=== PATIENT | female | born 2000 | race African-American/Black ===

== ENCOUNTER 2019-04-16 19:18 | Emergency (ER) | payer OTHER, SELFPAY ==
[2019-04-16 19:24] VITALS: BP 116/78; PULSE 76; RESP 18; TEMP 36.8; O2SAT 100; BMI 22.6
--- NOTE | 2019-04-16 19:43 | ED.ABDPAIN ---
HPI - Abdominal Pain General Chief Complaint: Abdominal Pain Stated Complaint: 12 WKS , ABD PAIN, PAIN W/URINATION Time Seen by Provider: 04/16/19 19:29 Source: patient Mode of arrival: ambulatory Limitations: no limitations History of Present Illness HPI narrative: Patient is a 18-year-old female who is currently 11 weeks . This is her 1st . She has been having lower abdominal pain and cramping today. No vaginal bleeding. She does have some yellowish discharge. On she denies any back pain. She feels like she might have a UTI. She has been nauseated but no vomiting that is only really been today. No fevers. She apparently was diagnosed with Chlamydia by pelvic exam about 4 weeks ago she was treated with azithromycin. was never treated. She is having some yellow discharge. MD complaint: abdominal pain Quality: cramping Migration to: no migration Relieving factors: nothing Exacerbating factors: nothing Related Data Previous Rx's Medication Instructions Recorded nitrofurantoin monohyd/m-cryst 100 mg PO BID #14 cap 04/16/19 [Macrobid] Allergies Allergy/AdvReac Type Severity Reaction Status Date / Time No Known Drug Allergies Allergy Verified 04/16/19 20:21 Review of Systems Review of Systems ROS Unobtainable: All systems reviewed & are unremarkable except as noted in HPI and below Constitutional Denies chills, Denies fever(s), Denies lethargy and Denies weakness Eyes Denies change in vision, Denies eye discharge, Denies irritation and Denies loss of vision Cardiovascular Denies dyspnea and Denies dyspnea on exertion Respiratory Denies cough, Denies dyspnea, Denies dyspnea on exertion and Denies wheezing Gastrointestinal Gastrointestinal: Reports as per HPI and Reports nausea Genitourinary Reports as per HPI Musculoskeletal Denies back pain, Denies muscle weakness, Denies numbness and Denies tingling Integumentary/Breasts Denies pruritus, Denies erythema, Denies rash and Denies wounds Neurologic Denies loss of vision, Denies numbness, Denies tingling and Denies weakness Allergic/Immunologic Denies wheezing [facility] Medical History History of chlamydia (Acute) Social History Smoking Status: Never smoker Social History Smoking Status: Never smoker Exam Initial Vital Signs Initial Vital Signs: Vital Signs Temperature 98.2 F 04/16/19 19:24 Pulse Rate 76 04/16/19 19:24 Respiratory Rate 18 04/16/19 19:24 Blood Pressure 116/78 04/16/19 19:24 Pulse Oximetry 100 04/16/19 19:24 GENERAL: Well-appearing, well-nourished and in no acute distress. HEENT: Head atraumatic,EOMI, pupils reactive, face symmetric, moist mucous membranes CARDIOVASCULAR: Regular rate and rhythm without murmurs, rubs or gallops. RESPIRATORY: Breath sounds equal bilaterally, no wheezes rales or rhonchi. ABDOMEN: Soft, lower abdominal tenderness no guarding or rebound : No CVA tenderness EXTREMITIES: Normal range of motion, no clubbing or edema. Neurovascularly intact NEUROLOGICAL: Alert and oriented x4.Normal gait and speech. SKIN: Warm, dry, no laceration, no petechiae, no rashes or lesions. Course Orders Ordered: ED Orders 04/16/19 19:49 US OB <= 14 weeks fetus Stat 04/16/19 19:52 Test Urine Stat Urinalysis and Microscopic Stat Urine Chlamydia Gonorrhea PCR Stat Urine Culture Stat 04/16/19 20:06 Complete Blood Count AUTO DIFF Stat Comprehensive Metabolic Panel Stat Discontinued Medications Azithromycin (Zithromax) 1,000 mg PO NOW ONE Stop: 04/16/19 22:31 Last Admin: 04/16/19 22:47 Dose: 1,000 mg Sodium Chloride (Normal Saline 0.9%) 1,000 mls @ 1,000 mls/hr IV BOLUS ONE Stop: 04/16/19 20:48 Last Infusion: 04/16/19 21:18 Dose: 0 mls/hr Admin: 04/16/19 20:21 Dose: 1,000 mls/hr Nitrofurantoin Macrocrystals (Macrobid 100mg Prepack) 1 bottle MISC SEEINSTR ONE Stop: 04/16/19 22:38 Last Admin: 04/16/19 22:45 Dose: 1 bottle Ondansetron HCl (Zofran) 4 mg IV NOW ONE Stop: 04/16/19 19:50 Last Admin: 04/16/19 20:21 Dose: 4 mg Vital Signs - 8 hr 04/16/19 19:24 04/16/19 22:08 Temperature 98.2 F Pulse Rate 76 64 Respiratory Rate 18 17 Blood Pressure 116/78 Blood Pressure [Right Arm] 107/60 Pulse Oximetry 100 100 MDM - Abdominal Pain Lab Data Attestation: I reviewed the patient's lab results. Result diagrams: 04/16/19 20:06 04/16/19 20:06 Lab Results 04/16/19 04/16/19 04/16/19 Range/Units 19:52 19:52 19:52 WBC (4.5-11.0) X10^3/uL RBC (4.0-5.2) X10^6/uL Hgb (12.0-16.0) g/dL Hct (36-46) % MCV (80-100) fL MCH (26-34) PG MCHC (30-36) % RDW (11.6-14.8) % Plt Count (150-400) X10^3/uL Neut % (Auto) (50-75) % Lymph % (Auto) (25-40) % [place] % (Auto) (3-14) % Eos % (Auto) (2-4) % Baso % (Auto) (0-2) % Neut # (Auto) (2761-0398) /uL Lymph # (Auto) (5271-0613) /uL [place] # (Auto) (0-900) /uL Eos # (Auto) (0-450) /uL Baso # (Auto) (0-100) /uL Sodium (137-145) mmol/L Potassium (3.4-5.1) mmol/L Chloride (98-107) mmol/L Carbon Dioxide (22-32) mmol/L BUN (7-17) mg/dL Creatinine (0.52-1.04) mg/dL Estimated GFR (>60) mL/min BUN/Creatinine Ratio (6-22) Glucose (70-100) mg/dL Calcium (8.4-10.2) mg/dL Total Bilirubin (0.2-1.3) mg/dL AST (14-36) IU/L ALT (9-52) IU/L Alkaline Phosphatase (38-126) U/L Total Protein (6.3-8.2) g/dL Albumin (3.5-5.0) g/dL Globulin (1.7-4.1) g/dL Albumin/Globulin Ratio (1.0-2.8) Urine Color Yellow Urine Appearance Clear Urine pH 5.0 (4.5-8.0) Ur Specific [place] >=1.030 H (1.000-1.035) Urine Protein Negative (Negative) Urine Glucose (UA) Negative (Negative) g/dL Urine Ketones Negative (NEGATIVE) Urine Occult Blood Negative (Negative) Urine Nitrate Negative (Negative) Urine Bilirubin Negative (NEGATIVE) Urine Urobilinogen 0.2 (0.2) E.U./dL Ur Leukocyte Esterase Trace H (NEGATIVE) Urine RBC 1-5/hpf (0-5/HPF) Urine WBC 1-5/hpf (0-5/HPF) Ur Squamous Epith Cells 1-5 /hpf (0-5/HPF) Urine Bacteria Few (2-10) H (None) Ur Culture Indicated? Specimen cultured Urine Test Positive H (Negative) Ur Chlamydia DNA (PCR) Not detected N gonorrhoeae DNA (PCR) Not detected 04/16/19 04/16/19 Range/Units 20:06 20:06 WBC 5.8 (4.5-11.0) X10^3/uL RBC 4.40 (4.0-5.2) X10^6/uL Hgb 12.8 (12.0-16.0) g/dL Hct 36.9 (36-46) % MCV 83.9 (80-100) fL MCH 29.1 (26-34) PG MCHC 34.7 (30-36) % RDW 13.7 (11.6-14.8) % Plt Count 278 (150-400) X10^3/uL Neut % (Auto) 50.8 (50-75) % Lymph % (Auto) 36.3 (25-40) % [place] % (Auto) 11.0 (3-14) % Eos % (Auto) 1.1 L (2-4) % Baso % (Auto) 0.8 (0-2) % Neut # (Auto) 2900 (7268-3659) /uL Lymph # (Auto) 2100 (8898-6676) /uL [place] # (Auto) 600 (0-900) /uL Eos # (Auto) 100 (0-450) /uL Baso # (Auto) 0 (0-100) /uL Sodium 136 L (137-145) mmol/L Potassium 3.7 (3.4-5.1) mmol/L Chloride 100 (98-107) mmol/L Carbon Dioxide 26 (22-32) mmol/L BUN 7 (7-17) mg/dL Creatinine 0.50 L (0.52-1.04) mg/dL Estimated GFR > 60.0 (>60) mL/min BUN/Creatinine Ratio 14.0 (6-22) Glucose 106 H (70-100) mg/dL Calcium 10.1 (8.4-10.2) mg/dL Total Bilirubin 0.3 (0.2-1.3) mg/dL AST 25 (14-36) IU/L ALT 7 L (9-52) IU/L Alkaline Phosphatase 56 (38-126) U/L Total Protein 8.0 (6.3-8.2) g/dL Albumin 4.4 (3.5-5.0) g/dL Globulin 3.6 (1.7-4.1) g/dL Albumin/Globulin Ratio 1.2 (1.0-2.8) Urine Color Urine Appearance Urine pH (4.5-8.0) Ur Specific [place] (1.000-1.035) Urine Protein (Negative) Urine Glucose (UA) (Negative) g/dL Urine Ketones (NEGATIVE) Urine Occult Blood (Negative) Urine Nitrate (Negative) Urine Bilirubin (NEGATIVE) Urine Urobilinogen (0.2) E.U./dL Ur Leukocyte Esterase (NEGATIVE) Urine RBC (0-5/HPF) Urine WBC (0-5/HPF) Ur Squamous Epith Cells (0-5/HPF) Urine Bacteria (None) Ur Culture Indicated? Urine Test (Negative) Ur Chlamydia DNA (PCR) N gonorrhoeae DNA (PCR) Imaging Data OB US: Radiologist's impression: PROCEDURE: US OB <= 14 WEEKS FETUS INDICATIONS: PAIN OUTSIDE/PRIOR DATING DATA: Last menstrual period (LMP): 02/01/19. LMP-based estimated date of delivery (TIMOTEO): 11/08/19. First dating scan (date and location): 04/16/19. Estimated date of delivery (TIMOTEO) from first dating scan: 11/02/19. TECHNIQUE: Real-time scanning was performed of the fetus and maternal pelvic organs, with image documentation. Endovaginal scanning was also performed to better visualize the fetus and maternal ovaries. COMPARISON: None. FINDINGS: Embryo: Single living intrauterine gestation with crown-rump length measuring 4.6 cm which correlates with approximately 11 weeks and 3 days gestational age. heart rate measured 182 beats per minute. No perigestational hemorrhage. Measurement variability in dating: +/- 4 weeks by LMP, +/- 7 days by mean sac diameter (use before 6 weeks gestation if crown-rump length not able to be measured), +/- 5 days by crown-rump length (up to 8 weeks 6 days gestation), +/- 7 days by crown-rump length (up to 13 weeks 6 days gestation). Maternal organs: Right maternal ovary is unremarkable. The left ovary was not visualized. Limited images through the kidneys demonstrate no hydronephrosis. IMPRESSION: Single living intrauterine gestation with an estimated sonographic gestational age of approximately 11 weeks and 3 days. No perigestational hemorrhage. No acute sonographic abnormalities identified. Recommend clinical followup and routine second trimester anatomic screening survey. Dictated by: Krishan Maldonado M.D. on 04/16/2019 at 22:24 Approved by: Krishan Maldonado M.D. on 04/16/2019 at 22:28 [facility] Narrative Medical decision making narrative: Patient was actually diagnosed with Chlamydia about 3 or 4 weeks ago by a pelvic exam and given azithromycin. Today her 's urine chlamydia is positive hers is negative but she is still having some discharge. Will treat her again. Recommend that she follow up with OB. Also discussed no sex until follow-up. Will also treat her for UTI and given Macrobid. She is asymptomatic with leukocytes and bacteria in urine. Discharge Plan Departure Patient Disposition: Home Clinical Impression: UTI (urinary tract infection) Qualifiers: Urinary tract infection type: acute cystitis Hematuria presence: without hematuria Qualified Code(s): N30.00 - Acute cystitis without hematuria Discharge Date/Time: 04/16/19 22:55 Interventions: ED Discharge Assessment Last Done: 04/16/19 22:55 Instructions: Facts About Sexually Transmitted Infections, DI for Pelvic Inflammatory Disease Activity Restrictions/Additional Instructions: *You have been diagnosed with UTI while *What to do: You have been treated again for Chlamydia based on her 's results. He were given azithromycin 1 g in the ED. However your urine still does possible infection. Recommend that you follow up closely with your PCP/OB *Continue to take medications as directed Macrobid 100 mg twice a day for 7 days *Follow up with your primary care provider in 2-3 days *Return to ER if you should have increasing abdominal pain, vaginal bleeding or any new, worsening or concerning symptoms Prescriptions: New nitrofurantoin monohyd/m-cryst [Macrobid] 100 mg capsule 100 mg PO BID Qty: 14 RF: 0 Referrals: [facility] [Provider Group]
--- NOTE | 2019-04-16 19:49 | DI.US.S_ITS ---
PROCEDURE: US OB <= 14 WEEKS FETUS INDICATIONS: PAIN OUTSIDE/PRIOR DATING DATA: Last menstrual period (LMP): 02/01/19. LMP-based estimated date of delivery (TIMOTEO): 11/08/19. First dating scan (date and location): 04/16/19. Estimated date of delivery (TIMOTEO) from first dating scan: 11/02/19. TECHNIQUE: Real-time scanning was performed of the fetus and maternal pelvic organs, with image documentation. Endovaginal scanning was also performed to better visualize the fetus and maternal ovaries. COMPARISON: None. FINDINGS: Embryo: Single living intrauterine gestation with crown-rump length measuring 4.6 cm which correlates with approximately 11 weeks and 3 days gestational age. heart rate measured 182 beats per minute. No perigestational hemorrhage. Measurement variability in dating: +/- 4 weeks by LMP, +/- 7 days by mean sac diameter (use before 6 weeks gestation if crown-rump length not able to be measured), +/- 5 days by crown-rump length (up to 8 weeks 6 days gestation), +/- 7 days by crown-rump length (up to 13 weeks 6 days gestation). Maternal organs: Right maternal ovary is unremarkable. The left ovary was not visualized. Limited images through the kidneys demonstrate no hydronephrosis. IMPRESSION: Single living intrauterine gestation with an estimated sonographic gestational age of approximately 11 weeks and 3 days. No perigestational hemorrhage. No acute sonographic abnormalities identified. Recommend clinical followup and routine second trimester anatomic screening survey. Dictated by: Krishan Maldonado M.D. on 04/16/2019 at 22:24 Approved by: Krishan Maldonado M.D. on 04/16/2019 at 22:28
[2019-04-16 20:14] LABS: Appearance Urine UA CLEAR; Bilirubin Urine UA NEGATIVE (NEGATIVE); Color Urine UA YELLOW; Glucose Urine UA NEGATIVE (Negative); Ketones Urine UA NEGATIVE (NEGATIVE); Leukocyte Esterase Urine UA TRACE (NEGATIVE); Nitrite Urine UA NEGATIVE (Negative); Occult Blood Urine UA NEGATIVE (Negative); Protein Urine UA NEGATIVE (Negative); Specific Gravity Urine UA >=1.030 (1.000-1.035); Urobilinogen Urine UA 0.2 E.U./dL (0.2)
[2019-04-16 20:18] LABS: Pregnancy Test Urine Positive (Negative)
[2019-04-16] MEDS: ONDANSETRON 4 MG/2 ML INJ IV (20:21)
[2019-04-16] MEDS: SODIUM CHLORIDE 0.9% 1,000 ML 1000 ML IV (20:21)
[2019-04-16 20:22] LABS: Add Manual Diff / Slide Review NO; Basophils Absolute Auto 0 /uL (0-100); Basophils Percent Auto 0.8 % (0-2); Eosinophils Absolute Auto 100 /uL (0-450); Eosinophils Percent Auto 1.1 % (2-4); Hematocrit 36.9 % (36-46); Hemoglobin 12.8 g/dL (12.0-16.0); Lymphocytes Absolute Auto 2100 /uL (1100-4500); Lymphocytes Percent Auto 36.3 % (25-40); Mean Corpuscular HGB Conc 34.7 % (30-36); Mean Corpuscular Hemoglobin 29.1 PG (26-34); Mean Corpuscular Volume 83.9 fL (80-100); Monocytes Absolute Auto 600 /uL (0-900); Neutrophils Absolute Auto 2900 /uL (1500-7000); Neutrophils Percent Auto 50.8 % (50-75); Platelet Count 278 X10^3/uL (150-400); Red Cell Distribution Width 13.7 % (11.6-14.8); White Blood Cell Count 5.8 X10^3/uL (4.5-11.0)
[2019-04-16 20:34] LABS: Bacteria Urine Few (2-10); Culture Indicated Urine Specimen Cultured; RBC Urine 1-5/HPF (0-5/HPF); Squamous Epithelial Cell Urine 1-5 /HPF (0-5/HPF); WBC Urine 1-5/HPF (0-5/HPF)
[2019-04-16 20:36] LABS: Alanine Aminotransferase 7 IU/L (9-52); Albumin 4.4 g/dL (3.5-5.0); Albumin Globulin Ratio 1.2 (1.0-2.8); Alkaline Phosphatase 56 U/L (38-126); Aspartate Aminotransferase 25 IU/L (14-36); Bilirubin Total 0.3 mg/dL (0.2-1.3); Blood Urea Nitrogen 7 mg/dL (7-17); Calcium 10.1 mg/dL (8.4-10.2); Carbon Dioxide 26 mmol/L (22-32); Chloride 100 mmol/L (98-107); Estimated Glomerular Filt Rate > 60.0 mL/min (>60); Globulin 3.6 g/dL (1.7-4.1); Glucose 106 mg/dL (70-100); HEMOLYSIS < 15 (0-50); Potassium 3.7 mmol/L (3.4-5.1); Sodium 136 mmol/L (137-145)
[2019-04-16 21:44] LABS: Urine N gonorrhoeae NOT DETECTED
[2019-04-16 21:55] LABS: Urine Chlamydia NOT DETECTED
[2019-04-16 22:08] VITALS: BP 107/60; PULSE 64; RESP 17; O2SAT 100
[2019-04-16] MEDS: NITROFURANTOIN 100MG PREPACK 1 BOTTLE MISC (22:45)
[2019-04-16] MEDS: AZITHROMYCIN 250 MG TABLET 1000 MG PO (22:47)
== END 2019-04-16 22:55 | disposition home or self-care (01) ==
PROVIDERS: Emergency Provider Emergency Medicine
DX: O26.891 Other specified pregnancy related conditions, first trimester (principal); N39.0 Urinary tract infection, site not specified; Z3A.11 11 weeks gestation of pregnancy
CPT/HCPCS: 36591; 76801; 76817; 80053; 81001; 81025; 85025; 87086; 87491; 87591; 96361; 96374; 99283; 99284; J2405

== ENCOUNTER 2019-04-27 18:34 | Emergency (ER) | payer OTHER, SELFPAY ==
[2019-04-27 18:35] VITALS: BP 120/81; PULSE 91; RESP 18; TEMP 36.8; O2SAT 99; BMI 23.5
--- NOTE | 2019-04-27 18:44 | DI.US.S_ITS ---
PROCEDURE: US OB <= 14 WEEKS FETUS INDICATIONS: PAIN OUTSIDE/PRIOR DATING DATA: Last menstrual period (LMP): 02/01/2019. LMP-based estimated date of delivery (TIMOTEO): 11/08/19. First dating scan (date and location): 04/16/2019 at [facility]. Estimated date of delivery (TIMOTEO) from first dating scan: 11/02/2019. TECHNIQUE: Real-time scanning was performed of the fetus and maternal pelvic organs, with image documentation. COMPARISON: [facility], , OB <= 14 WEEKS FETUS, 04/16/2019, 20:26. FINDINGS: Embryo: Single living intrauterine gestation identified with an estimated sonographic gestational age of approximately 13 weeks and 0 days. heart rate measured 160 beats per minute. Measurement variability in dating: +/- 4 weeks by LMP, +/- 7 days by mean sac diameter (use before 6 weeks gestation if crown-rump length not able to be measured), +/- 5 days by crown-rump length (up to 8 weeks 6 days gestation), +/- 7 days by crown-rump length (up to 13 weeks 6 days gestation). Maternal organs: Ovaries are not well seen. Limited images through the kidneys demonstrate no hydronephrosis. IMPRESSION: 1. Single living intrauterine gestation with an estimated sonographic gestational age of approximately 13 weeks and 0 days. Recommend routine second trimester anatomic screening survey. 2. No sonographic abnormalities identified. Dictated by: Krishan Maldonado M.D. on 04/27/2019 at 19:32 Approved by: Krishan Maldonado M.D. on 04/27/2019 at 19:36
[2019-04-27 18:55] LABS: Add Manual Diff / Slide Review NO; Basophils Absolute Auto 0 /uL (0-100); Basophils Percent Auto 0.5 % (0-2); Eosinophils Absolute Auto 0 /uL (0-450); Eosinophils Percent Auto 0.8 % (2-4); Hematocrit 37.1 % (36-46); Hemoglobin 12.6 g/dL (12.0-16.0); Lymphocytes Absolute Auto 2300 /uL (1100-4500); Lymphocytes Percent Auto 36.7 % (25-40); Mean Corpuscular HGB Conc 34.1 % (30-36); Mean Corpuscular Hemoglobin 28.6 PG (26-34); Mean Corpuscular Volume 83.9 fL (80-100); Monocytes Absolute Auto 800 /uL (0-900); Monocytes Percent Auto 12.1 % (3-14); Neutrophils Absolute Auto 3100 /uL (1500-7000); Neutrophils Percent Auto 49.9 % (50-75); Platelet Count 266 X10^3/uL (150-400); Red Blood Cell Count 4.42 X10^6/uL (4.0-5.2); Red Cell Distribution Width 13.6 % (11.6-14.8); White Blood Cell Count 6.2 X10^3/uL (4.5-11.0)
--- NOTE | 2019-04-27 18:56 | PC.NURSE ---
Pt Hx Chlamydia. States she is 13 weeks , unknown LMP. C/O lower abdominal pain. Urine specimen collected and sent to lab. US tech at bedside. Awaiting on pelvic exam when available. Will continue to monitor.
[2019-04-27] MEDS: SODIUM CHLORIDE 0.9% 1,000 ML 1000 ML IV (19:05)
[2019-04-27 19:08] LABS: Alanine Aminotransferase 8 IU/L (9-52); Albumin 4.4 g/dL (3.5-5.0); Albumin Globulin Ratio 1.3 (1.0-2.8); Alkaline Phosphatase 48 U/L (38-126); Aspartate Aminotransferase 27 IU/L (14-36); Bilirubin Total 0.5 mg/dL (0.2-1.3); Blood Urea Nitrogen 6 mg/dL (7-17); Calcium 9.9 mg/dL (8.4-10.2); Carbon Dioxide 25 mmol/L (22-32); Chloride 102 mmol/L (98-107); Estimated Glomerular Filt Rate > 60.0 mL/min (>60); Globulin 3.4 g/dL (1.7-4.1); Glucose 98 mg/dL (70-100); Potassium 4.3 mmol/L (3.4-5.1); Sodium 135 mmol/L (137-145); Total Protein 7.8 g/dL (6.3-8.2)
[2019-04-27] MEDS: ACETAMINOPHEN 325 MG TABLET 975 MG PO (19:42)
[2019-04-27 20:09] LABS: HCG Quantitative /Beta subunit 113240 mIU/mL; HEMOLYSIS 42 (0-50)
[2019-04-27 20:21] VITALS: BP 90/61; PULSE 72; RESP 16; O2SAT 100
[2019-04-27 20:34] LABS: Urine N gonorrhoeae NOT DETECTED
[2019-04-27 20:35] LABS: Urine Chlamydia NOT DETECTED
--- NOTE | 2019-04-27 20:37 | ED.ABDPAIN ---
HPI - Abdominal Pain <[facility] - Last Filed: 04/27/19 20:55> General Chief Complaint: Abdominal Pain Stated Complaint: stomach pain Time Seen by Provider: 04/27/19 18:36 Source: patient Mode of arrival: ambulatory Limitations: no limitations History of Present Illness HPI narrative: The patient is a 18-year-old female who presents with her for chief complaint of lower abdominal pain, vaginal discharge and concern for sexually transmitted infections. She states she is 13 weeks . She is noting white thick vaginal discharge consistent with her previous experience with yeast infections. She does note that she has been treated for Chlamydia several times during this . She is not sure if she is negative at this point or not. She has most recently treated at this facility 2 weeks ago. She was also placed on Macrobid for urinary tract infection 2 weeks ago. She denies any fevers nausea vomiting or diarrhea. She states her pain is bilateral lower. She does not have any vaginal bleeding at this point time. Related Data Previous Rx's Medication Instructions Recorded nitrofurantoin monohyd/m-cryst 100 mg PO BID #14 cap 04/16/19 [Macrobid] miconazole nitrate [Miconazole 7] 1 applicator VAG BEDTIME 7 Days #1 04/27/19 gram Allergies Allergy/AdvReac Type Severity Reaction Status Date / Time No Known Drug Allergies Allergy Verified 04/27/19 18:54 Review of Systems [facility] Last Filed: 04/27/19 20:55> Review of Systems GENERAL: Denies chills, fatigue, malaise, fever, sweats. HEENT: Denies sinus pain, ear pain, sore throat, difficulty swallowing, dizziness. RESPIRATORY: Denies dyspnea, cough, wheezing, hemoptysis, sputum. CARDIOVASCULAR: Denies chest pain, palpitations, orthopnea, edema, GASTROINTESTINAL: See HPI : See HPI MUSCULOSKELETAL: denies weakness, joint pain, or bony pain SKIN: Denies rash, skin lesions, or other NEUROLOGIC: Denies weakness, headache, numbness, change in speech, confusion, seizures, incoordination. PSYCHIATRIC: No concerning psychosocial issues. 12 point review of systems is negative except for those stated above PFSH <[facility] - Last Filed: 04/27/19 20:55> Social History Smoking Status: Never smoker Exam <DUNCAN Cabrera - Last Filed: 04/27/19 20:55> Narrative Exam Narrative: GENERAL: This is a well-nourished, well-developed patient, appears anxious HEAD: Atraumatic. Normocephalic. No temporal or scalp tenderness. EYES: Pupils equal round and reactive. Extraocular motions intact. No scleral icterus. No injection or drainage. ENT: Nose without bleeding, purulent drainage or septal hematoma. Throat without erythema, tonsillar hypertrophy or exudate. Uvula midline. Airway patent. NECK: Trachea midline. No JVD or lymphadenopathy. Supple, nontender, no meningeal signs. CARDIOVASCULAR: Regular rate and rhythm without murmurs, gallops, or rubs. RESPIRATORY: Clear to auscultation. Breath sounds equal bilaterally. No wheezes, rales, or rhonchi. No cough. No increased respiratory effort. No accessory muscle use. GASTROINTESTINAL: Abdomen round, nondistended. No hepato-splenomegaly, or palpable masses. No guarding. Diffusely tender to bilateral lower quadrant palpation EXTREMITIES: No clubbing, cyanosis, or edema. No joint tenderness, effusion, or edema noted. BACK: Nontender without deformity or crepitance. No flank tenderness. NEURO: AOx3. SKIN: No rash or erythema. : Pelvic exam performed Venecia RN at bedside. No cervical motion tenderness on exam. Thick white discharge noted. Initial Vital Signs Initial Vital Signs: Vital Signs Temperature 98.3 F 04/27/19 18:35 Pulse Rate 91 H 04/27/19 18:35 Respiratory Rate 18 04/27/19 18:35 Blood Pressure 120/81 04/27/19 18:35 Pulse Oximetry 99 04/27/19 18:35 <Nitin Marte DO - Last Filed: 04/27/19 21:36> Initial Vital Signs Initial Vital Signs: Vital Signs Temperature 98.3 F 04/27/19 18:35 Pulse Rate 91 H 04/27/19 18:35 Respiratory Rate 18 04/27/19 18:35 Blood Pressure 120/81 04/27/19 18:35 Pulse Oximetry 99 04/27/19 18:35 Course <DUNCAN Cabrera - Last Filed: 04/27/19 20:55> Orders Ordered: ED Orders 04/27/19 18:44 US OB <= 14 weeks fetus Stat 04/27/19 18:45 Complete Blood Count AUTO DIFF Stat Comprehensive Metabolic Panel Stat HCG Quantitative Stat Urine Chlamydia Gonorrhea PCR Stat Urine Culture Stat Urine Microscopic Stat 04/27/19 19:30 Genital Culture Stat Wet Prep Tric BV Kayla Stat Discontinued Medications Acetaminophen (Tylenol) 975 mg PO NOW ONE Stop: 04/27/19 19:34 Last Admin: 04/27/19 19:42 Dose: 975 mg Sodium Chloride (Normal Saline 0.9%) 1,000 mls @ 1,000 mls/hr IV BOLUS ONE Stop: 04/27/19 19:43 Last Infusion: 04/27/19 20:26 Dose: 0 mls/hr Admin: 04/27/19 19:05 Dose: 1,000 mls/hr Vital Signs - 8 hr 04/27/19 18:35 04/27/19 20:21 04/27/19 21:27 Temperature 98.3 F Pulse Rate 91 H 72 85 Respiratory Rate 18 16 17 Blood Pressure 120/81 Blood Pressure [Left Arm] 90/61 92/64 Pulse Oximetry 99 100 98 <Nitin Marte DO - Last Filed: 04/27/19 21:36> Orders Ordered: ED Orders 04/27/19 18:44 US OB <= 14 weeks fetus Stat 04/27/19 18:45 Complete Blood Count AUTO DIFF Stat Comprehensive Metabolic Panel Stat HCG Quantitative Stat Urine Chlamydia Gonorrhea PCR Stat Urine Culture Stat Urine Microscopic Stat 04/27/19 19:30 Genital Culture Stat Wet Prep Tric BV Kayla Stat Discontinued Medications Acetaminophen (Tylenol) 975 mg PO NOW ONE Stop: 04/27/19 19:34 Last Admin: 04/27/19 19:42 Dose: 975 mg Sodium Chloride (Normal Saline 0.9%) 1,000 mls @ 1,000 mls/hr IV BOLUS ONE Stop: 04/27/19 19:43 Last Infusion: 04/27/19 20:26 Dose: 0 mls/hr Admin: 04/27/19 19:05 Dose: 1,000 mls/hr Vital Signs - 8 hr 04/27/19 18:35 04/27/19 20:21 04/27/19 21:27 Temperature 98.3 F Pulse Rate 91 H 72 85 Respiratory Rate 18 16 17 Blood Pressure 120/81 Blood Pressure [Left Arm] 90/61 92/64 Pulse Oximetry 99 100 98 MDM - Abdominal Pain <Lakeshia DamianMELISSAP- - Last Filed: 04/27/19 20:55> Lab Data Result diagrams: 04/27/19 18:45 04/27/19 18:45 Lab Results 04/27/19 04/27/19 04/27/19 Range/Units 18:45 18:45 18:45 WBC 6.2 (4.5-11.0) X10^3/uL RBC 4.42 (4.0-5.2) X10^6/uL Hgb 12.6 (12.0-16.0) g/dL Hct 37.1 (36-46) % MCV 83.9 (80-100) fL MCH 28.6 (26-34) PG MCHC 34.1 (30-36) % RDW 13.6 (11.6-14.8) % Plt Count 266 (150-400) X10^3/uL Neut % (Auto) 49.9 L (50-75) % Lymph % (Auto) 36.7 (25-40) % [place] % (Auto) 12.1 (3-14) % Eos % (Auto) 0.8 L (2-4) % Baso % (Auto) 0.5 (0-2) % Neut # (Auto) 3100 (0839-9685) /uL Lymph # (Auto) 2300 (6478-4484) /uL [place] # (Auto) 800 (0-900) /uL Eos # (Auto) 0 (0-450) /uL Baso # (Auto) 0 (0-100) /uL Sodium 135 L (137-145) mmol/L Potassium 4.3 (3.4-5.1) mmol/L Chloride 102 (98-107) mmol/L Carbon Dioxide 25 (22-32) mmol/L BUN 6 L (7-17) mg/dL Creatinine 0.40 L (0.52-1.04) mg/dL Estimated GFR > 60.0 (>60) mL/min BUN/Creatinine Ratio 15.0 (6-22) Glucose 98 (70-100) mg/dL Calcium 9.9 (8.4-10.2) mg/dL Total Bilirubin 0.5 (0.2-1.3) mg/dL AST 27 (14-36) IU/L ALT 8 L (9-52) IU/L Alkaline Phosphatase 48 (38-126) U/L Total Protein 7.8 (6.3-8.2) g/dL Albumin 4.4 (3.5-5.0) g/dL Globulin 3.4 (1.7-4.1) g/dL Albumin/Globulin Ratio 1.3 (1.0-2.8) HCG, Quant 029896 mIU/mL Urine RBC (0-5/HPF) Urine WBC (0-5/HPF) Ur Squamous Epith Cells (0-5/HPF) Urine Bacteria (None) Hyaline Casts (None) Ur Culture Indicated? Ur Chlamydia DNA (PCR) Not detected N gonorrhoeae DNA (PCR) Not detected 04/27/19 Range/Units 18:45 WBC (4.5-11.0) X10^3/uL RBC (4.0-5.2) X10^6/uL Hgb (12.0-16.0) g/dL Hct (36-46) % MCV (80-100) fL MCH (26-34) PG MCHC (30-36) % RDW (11.6-14.8) % Plt Count (150-400) X10^3/uL Neut % (Auto) (50-75) % Lymph % (Auto) (25-40) % [place] % (Auto) (3-14) % Eos % (Auto) (2-4) % Baso % (Auto) (0-2) % Neut # (Auto) (2326-0569) /uL Lymph # (Auto) (8532-4703) /uL [place] # (Auto) (0-900) /uL Eos # (Auto) (0-450) /uL Baso # (Auto) (0-100) /uL Sodium (137-145) mmol/L Potassium (3.4-5.1) mmol/L Chloride (98-107) mmol/L Carbon Dioxide (22-32) mmol/L BUN (7-17) mg/dL Creatinine (0.52-1.04) mg/dL Estimated GFR (>60) mL/min BUN/Creatinine Ratio (6-22) Glucose (70-100) mg/dL Calcium (8.4-10.2) mg/dL Total Bilirubin (0.2-1.3) mg/dL AST (14-36) IU/L ALT (9-52) IU/L Alkaline Phosphatase (38-126) U/L Total Protein (6.3-8.2) g/dL Albumin (3.5-5.0) g/dL Globulin (1.7-4.1) g/dL Albumin/Globulin Ratio (1.0-2.8) HCG, Quant mIU/mL Urine RBC None seen (0-5/HPF) Urine WBC 1-5/hpf (0-5/HPF) Ur Squamous Epith Cells 0-1 /hpf (0-5/HPF) Urine Bacteria None seen (None) Hyaline Casts 0-1/lpf (None) Ur Culture Indicated? Specimen cultured Ur Chlamydia DNA (PCR) N gonorrhoeae DNA (PCR) Point of care testing: Point of Care Testing Test Results Positive Urine Dip Bedside Urine Glucose Negative Bedside Urine Bilirubin - Negative Bedside Urine Ketone - Negative Urine Specific [place] 1.020 Bedside Urine Occult Blood - Negative Bedside Urine pH 6.5 Bedside Urine Protein - Negative Bedside Urine Urobilinogen - Negative Bedside Urine Leukocytes ++ 125 Esterase Imaging Data ultrasound: Radiologist's impression: Lien Felipe 18 F 2000 [place] [address] Ultrasound Report Signed Patient: Lien Felipe#: [id number] : 2000Acct:[id number] Age/Sex: 18 / FDate of Service: 04/27/19 Loc: ED Accession Number: [id number] Procedure: US OB <= 14 weeks fetus Ordering Provider: Lakeshia Damian-BC PROCEDURE: US OB <= 14 WEEKS FETUS INDICATIONS: PAIN OUTSIDE/PRIOR DATING DATA: Last menstrual period (LMP): 02/01/2019. LMP-based estimated date of delivery (TIMOTEO): 11/08/19. First dating scan (date and location): 04/16/2019 at [facility]. Estimated date of delivery (TIMOTEO) from first dating scan: 11/02/2019. TECHNIQUE: Real-time scanning was performed of the fetus and maternal pelvic organs, with image documentation. COMPARISON: [facility], , OB <= 14 WEEKS FETUS, 04/16/2019, 20:26. FINDINGS: Embryo: Single living intrauterine gestation identified with an estimated sonographic gestational age of approximately 13 weeks and 0 days. heart rate measured 160 beats per minute. Measurement variability in dating: +/- 4 weeks by LMP, +/- 7 days by mean sac diameter (use before 6 weeks gestation if crown-rump length not able to be measured), +/- 5 days by crown-rump length (up to 8 weeks 6 days gestation), +/- 7 days by crown-rump length (up to 13 weeks 6 days gestation). Maternal organs: Ovaries are not well seen. Limited images through the kidneys demonstrate no hydronephrosis. IMPRESSION: 1. Single living intrauterine gestation with an estimated sonographic gestational age of approximately 13 weeks and 0 days. Recommend routine second trimester anatomic screening survey. 2. No sonographic abnormalities identified. Dictated by: Krishan Maldonado M.D. on 04/27/2019 at 19:32 Approved by: Krishan Maldonado M.D. on 04/27/2019 at 19:36 MDM Narrative Medical decision making narrative: The patient is a 18-year-old female who presents with a chief complaint of vaginal discharge and lower abdominal pain. She is . She does not have an elevated white blood cell count. She has no acute findings on her urine. She has a normal ultrasound. Her urine gonorrhea and Chlamydia came back negative. She is hemodynamically stable, afebrile. Given her exam, we have elected to treat her for yeast infection. I discussed at length that she needs to follow up with her primary care Ob, which she has not done since her previous visit to this emergency department. I discussed at length the importance of follow-up care, coming back to emergency department for any acute concerns such as shortness of breath or severe vaginal bleeding. No questions or concerns upon discharge. <Nitin Marte, - Last Filed: 04/27/19 21:36> Lab Data Lab Results 04/27/19 04/27/19 04/27/19 Range/Units 18:45 18:45 18:45 WBC 6.2 (4.5-11.0) X10^3/uL RBC 4.42 (4.0-5.2) X10^6/uL Hgb 12.6 (12.0-16.0) g/dL Hct 37.1 (36-46) % MCV 83.9 (80-100) fL MCH 28.6 (26-34) PG MCHC 34.1 (30-36) % RDW 13.6 (11.6-14.8) % Plt Count 266 (150-400) X10^3/uL Neut % (Auto) 49.9 L (50-75) % Lymph % (Auto) 36.7 (25-40) % [place] % (Auto) 12.1 (3-14) % Eos % (Auto) 0.8 L (2-4) % Baso % (Auto) 0.5 (0-2) % Neut # (Auto) 3100 (7155-6899) /uL Lymph # (Auto) 2300 (0437-1441) /uL [place] # (Auto) 800 (0-900) /uL Eos # (Auto) 0 (0-450) /uL Baso # (Auto) 0 (0-100) /uL Sodium 135 L (137-145) mmol/L Potassium 4.3 (3.4-5.1) mmol/L Chloride 102 (98-107) mmol/L Carbon Dioxide 25 (22-32) mmol/L BUN 6 L (7-17) mg/dL Creatinine 0.40 L (0.52-1.04) mg/dL Estimated GFR > 60.0 (>60) mL/min BUN/Creatinine Ratio 15.0 (6-22) Glucose 98 (70-100) mg/dL Calcium 9.9 (8.4-10.2) mg/dL Total Bilirubin 0.5 (0.2-1.3) mg/dL AST 27 (14-36) IU/L ALT 8 L (9-52) IU/L Alkaline Phosphatase 48 (38-126) U/L Total Protein 7.8 (6.3-8.2) g/dL Albumin 4.4 (3.5-5.0) g/dL Globulin 3.4 (1.7-4.1) g/dL Albumin/Globulin Ratio 1.3 (1.0-2.8) HCG, Quant 661642 mIU/mL Urine RBC (0-5/HPF) Urine WBC (0-5/HPF) Ur Squamous Epith Cells (0-5/HPF) Urine Bacteria (None) Hyaline Casts (None) Ur Culture Indicated? Ur Chlamydia DNA (PCR) Not detected N gonorrhoeae DNA (PCR) Not detected 04/27/19 Range/Units 18:45 WBC (4.5-11.0) X10^3/uL RBC (4.0-5.2) X10^6/uL Hgb (12.0-16.0) g/dL Hct (36-46) % MCV (80-100) fL MCH (26-34) PG MCHC (30-36) % RDW (11.6-14.8) % Plt Count (150-400) X10^3/uL Neut % (Auto) (50-75) % Lymph % (Auto) (25-40) % [place] % (Auto) (3-14) % Eos % (Auto) (2-4) % Baso % (Auto) (0-2) % Neut # (Auto) (2896-7827) /uL Lymph # (Auto) (5699-5455) /uL [place] # (Auto) (0-900) /uL Eos # (Auto) (0-450) /uL Baso # (Auto) (0-100) /uL Sodium (137-145) mmol/L Potassium (3.4-5.1) mmol/L Chloride (98-107) mmol/L Carbon Dioxide (22-32) mmol/L BUN (7-17) mg/dL Creatinine (0.52-1.04) mg/dL Estimated GFR (>60) mL/min BUN/Creatinine Ratio (6-22) Glucose (70-100) mg/dL Calcium (8.4-10.2) mg/dL Total Bilirubin (0.2-1.3) mg/dL AST (14-36) IU/L ALT (9-52) IU/L Alkaline Phosphatase (38-126) U/L Total Protein (6.3-8.2) g/dL Albumin (3.5-5.0) g/dL Globulin (1.7-4.1) g/dL Albumin/Globulin Ratio (1.0-2.8) HCG, Quant mIU/mL Urine RBC None seen (0-5/HPF) Urine WBC 1-5/hpf (0-5/HPF) Ur Squamous Epith Cells 0-1 /hpf (0-5/HPF) Urine Bacteria None seen (None) Hyaline Casts 0-1/lpf (None) Ur Culture Indicated? Specimen cultured Ur Chlamydia DNA (PCR) N gonorrhoeae DNA (PCR) Point of care testing: Point of Care Testing Test Results Positive Urine Dip Bedside Urine Glucose Negative Bedside Urine Bilirubin - Negative Bedside Urine Ketone - Negative Urine Specific [place] 1.020 Bedside Urine Occult Blood - Negative Bedside Urine pH 6.5 Bedside Urine Protein - Negative Bedside Urine Urobilinogen - Negative Bedside Urine Leukocytes ++ 125 Esterase Discharge Plan Departure Patient Disposition: Home Clinical Impression: Candidiasis Instructions: Vaginal Yeast Infection, DI for Vaginal Yeast Infection Activity Restrictions/Additional Instructions: Your ultrasound and came back normal today. Your urine does not have any bacteria in it. However we are sending it for culture to see if anything grows. You will get a phone call in 2-3 days if needed regarding your culture results. We have elected to treat you for a yeast infection. I have given you a prescription for this treatment. Please rest and push fluids. Please follow up with primary care OBGYN as soon as possible. Please come back to the emergency department for any acute concerns such as severe vaginal bleeding or shortness of breath. Prescriptions: New miconazole nitrate [Miconazole 7] 2 % cream 1 applicator VAG BEDTIME 7 Days Qty: 1 RF: 0 No Action nitrofurantoin monohyd/m-cryst [Macrobid] 100 mg capsule 100 mg PO BID Qty: 14 RF: 0 Referrals: [employer] [facility] [Provider Group] <Nitin Marte DO - Last Filed: 04/27/19 21:36> Cosign ED Attending Rehan Attestation: I was available for consultation during this patient's emergency department encounter
--- NOTE | 2019-04-27 20:40 | ED_ITS ---
HPI - Abdominal Pain <[facility] - Last Filed: 04/27/19 20:55> General Chief Complaint: Abdominal Pain Stated Complaint: stomach pain Time Seen by Provider: 04/27/19 18:36 Source: patient Mode of arrival: ambulatory Limitations: no limitations History of Present Illness HPI narrative: The patient is a 18-year-old female who presents with her for chief complaint of lower abdominal pain, vaginal discharge and concern for sexually transmitted infections. She states she is 13 weeks . She is noting white thick vaginal discharge consistent with her previous experience with yeast infections. She does note that she has been treated for Chlamydia several times during this . She is not sure if she is negative at this point or not. She has most recently treated at this facility 2 weeks ago. She was also placed on Macrobid for urinary tract infection 2 weeks ago. She denies any fevers nausea vomiting or diarrhea. She states her pain is bilateral lower. She does not have any vaginal bleeding at this point time. Related Data Previous Rx's Medication Instructions Recorded nitrofurantoin monohyd/m-cryst 100 mg PO BID #14 cap 04/16/19 [Macrobid] miconazole nitrate [Miconazole 7] 1 applicator VAG BEDTIME 7 Days #1 04/27/19 gram Allergies Allergy/AdvReac Type Severity Reaction Status Date / Time No Known Drug Allergies Allergy Verified 04/27/19 18:54 Review of Systems <[facility] - Last Filed: 04/27/19 20:55> Review of Systems GENERAL: Denies chills, fatigue, malaise, fever, sweats. HEENT: Denies sinus pain, ear pain, sore throat, difficulty swallowing, dizziness. RESPIRATORY: Denies dyspnea, cough, wheezing, hemoptysis, sputum. CARDIOVASCULAR: Denies chest pain, palpitations, orthopnea, edema, GASTROINTESTINAL: See HPI : See HPI MUSCULOSKELETAL: denies weakness, joint pain, or bony pain SKIN: Denies rash, skin lesions, or other NEUROLOGIC: Denies weakness, headache, numbness, change in speech, confusion, seizures, incoordination. PSYCHIATRIC: No concerning psychosocial issues. 12 point review of systems is negative except for those stated above PFSH <[facility] - Last Filed: 04/27/19 20:55> Social History Smoking Status: Never smoker Exam <DUNCAN Cabrera - Last Filed: 04/27/19 20:55> Narrative Exam Narrative: GENERAL: This is a well-nourished, well-developed patient, appears anxious HEAD: Atraumatic. Normocephalic. No temporal or scalp tenderness. EYES: Pupils equal round and reactive. Extraocular motions intact. No scleral icterus. No injection or drainage. ENT: Nose without bleeding, purulent drainage or septal hematoma. Throat without erythema, tonsillar hypertrophy or exudate. Uvula midline. Airway patent. NECK: Trachea midline. No JVD or lymphadenopathy. Supple, nontender, no meningeal signs. CARDIOVASCULAR: Regular rate and rhythm without murmurs, gallops, or rubs. RESPIRATORY: Clear to auscultation. Breath sounds equal bilaterally. No wheezes, rales, or rhonchi. No cough. No increased respiratory effort. No accessory muscle use. GASTROINTESTINAL: Abdomen round, nondistended. No hepato-splenomegaly, or palpable masses. No guarding. Diffusely tender to bilateral lower quadrant palpation EXTREMITIES: No clubbing, cyanosis, or edema. No joint tenderness, effusion, or edema noted. BACK: Nontender without deformity or crepitance. No flank tenderness. NEURO: AOx3. SKIN: No rash or erythema. : Pelvic exam performed Venecia RN at bedside. No cervical motion tenderness on exam. Thick white discharge noted. Initial Vital Signs Initial Vital Signs: Vital Signs Temperature 98.3 F 04/27/19 18:35 Pulse Rate 91 H 04/27/19 18:35 Respiratory Rate 18 04/27/19 18:35 Blood Pressure 120/81 04/27/19 18:35 Pulse Oximetry 99 04/27/19 18:35 <Nitin Marte DO - Last Filed: 04/27/19 21:36> Initial Vital Signs Initial Vital Signs: Vital Signs Temperature 98.3 F 04/27/19 18:35 Pulse Rate 91 H 04/27/19 18:35 Respiratory Rate 18 04/27/19 18:35 Blood Pressure 120/81 04/27/19 18:35 Pulse Oximetry 99 04/27/19 18:35 Course <DUNCAN Cabrera - Last Filed: 04/27/19 20:55> Orders Ordered: ED Orders 04/27/19 18:44 US OB <= 14 weeks fetus Stat 04/27/19 18:45 Complete Blood Count AUTO DIFF Stat Comprehensive Metabolic Panel Stat HCG Quantitative Stat Urine Chlamydia Gonorrhea PCR Stat Urine Culture Stat Urine Microscopic Stat 04/27/19 19:30 Genital Culture Stat Wet Prep Tric BV Kayla Stat Discontinued Medications Acetaminophen (Tylenol) 975 mg PO NOW ONE Stop: 04/27/19 19:34 Last Admin: 04/27/19 19:42 Dose: 975 mg Sodium Chloride (Normal Saline 0.9%) 1,000 mls @ 1,000 mls/hr IV BOLUS ONE Stop: 04/27/19 19:43 Last Infusion: 04/27/19 20:26 Dose: 0 mls/hr Admin: 04/27/19 19:05 Dose: 1,000 mls/hr Vital Signs - 8 hr 04/27/19 18:35 04/27/19 20:21 04/27/19 21:27 Temperature 98.3 F Pulse Rate 91 H 72 85 Respiratory Rate 18 16 17 Blood Pressure 120/81 Blood Pressure [Left Arm] 90/61 92/64 Pulse Oximetry 99 100 98 <Nitin Marte DO - Last Filed: 04/27/19 21:36> Orders Ordered: ED Orders 04/27/19 18:44 US OB <= 14 weeks fetus Stat 04/27/19 18:45 Complete Blood Count AUTO DIFF Stat Comprehensive Metabolic Panel Stat HCG Quantitative Stat Urine Chlamydia Gonorrhea PCR Stat Urine Culture Stat Urine Microscopic Stat 04/27/19 19:30 Genital Culture Stat Wet Prep Tric BV Kayla Stat Discontinued Medications Acetaminophen (Tylenol) 975 mg PO NOW ONE Stop: 04/27/19 19:34 Last Admin: 04/27/19 19:42 Dose: 975 mg Sodium Chloride (Normal Saline 0.9%) 1,000 mls @ 1,000 mls/hr IV BOLUS ONE Stop: 04/27/19 19:43 Last Infusion: 04/27/19 20:26 Dose: 0 mls/hr Admin: 04/27/19 19:05 Dose: 1,000 mls/hr Vital Signs - 8 hr 04/27/19 18:35 04/27/19 20:21 04/27/19 21:27 Temperature 98.3 F Pulse Rate 91 H 72 85 Respiratory Rate 18 16 17 Blood Pressure 120/81 Blood Pressure [Left Arm] 90/61 92/64 Pulse Oximetry 99 100 98 MDM - Abdominal Pain <Lakeshia DamianMELISSAP- - Last Filed: 04/27/19 20:55> Lab Data Result diagrams: 04/27/19 18:45 04/27/19 18:45 Lab Results 04/27/19 04/27/19 04/27/19 Range/Units 18:45 18:45 18:45 WBC 6.2 (4.5-11.0) X10^3/uL RBC 4.42 (4.0-5.2) X10^6/uL Hgb 12.6 (12.0-16.0) g/dL Hct 37.1 (36-46) % MCV 83.9 (80-100) fL MCH 28.6 (26-34) PG MCHC 34.1 (30-36) % RDW 13.6 (11.6-14.8) % Plt Count 266 (150-400) X10^3/uL Neut % (Auto) 49.9 L (50-75) % Lymph % (Auto) 36.7 (25-40) % [place] % (Auto) 12.1 (3-14) % Eos % (Auto) 0.8 L (2-4) % Baso % (Auto) 0.5 (0-2) % Neut # (Auto) 3100 (1008-4688) /uL Lymph # (Auto) 2300 (8143-2831) /uL [place] # (Auto) 800 (0-900) /uL Eos # (Auto) 0 (0-450) /uL Baso # (Auto) 0 (0-100) /uL Sodium 135 L (137-145) mmol/L Potassium 4.3 (3.4-5.1) mmol/L Chloride 102 (98-107) mmol/L Carbon Dioxide 25 (22-32) mmol/L BUN 6 L (7-17) mg/dL Creatinine 0.40 L (0.52-1.04) mg/dL Estimated GFR > 60.0 (>60) mL/min BUN/Creatinine Ratio 15.0 (6-22) Glucose 98 (70-100) mg/dL Calcium 9.9 (8.4-10.2) mg/dL Total Bilirubin 0.5 (0.2-1.3) mg/dL AST 27 (14-36) IU/L ALT 8 L (9-52) IU/L Alkaline Phosphatase 48 (38-126) U/L Total Protein 7.8 (6.3-8.2) g/dL Albumin 4.4 (3.5-5.0) g/dL Globulin 3.4 (1.7-4.1) g/dL Albumin/Globulin Ratio 1.3 (1.0-2.8) HCG, Quant 273725 mIU/mL Urine RBC (0-5/HPF) Urine WBC (0-5/HPF) Ur Squamous Epith Cells (0-5/HPF) Urine Bacteria (None) Hyaline Casts (None) Ur Culture Indicated? Ur Chlamydia DNA (PCR) Not detected N gonorrhoeae DNA (PCR) Not detected 04/27/19 Range/Units 18:45 WBC (4.5-11.0) X10^3/uL RBC (4.0-5.2) X10^6/uL Hgb (12.0-16.0) g/dL Hct (36-46) % MCV (80-100) fL MCH (26-34) PG MCHC (30-36) % RDW (11.6-14.8) % Plt Count (150-400) X10^3/uL Neut % (Auto) (50-75) % Lymph % (Auto) (25-40) % [place] % (Auto) (3-14) % Eos % (Auto) (2-4) % Baso % (Auto) (0-2) % Neut # (Auto) (0791-6069) /uL Lymph # (Auto) (4747-5867) /uL [place] # (Auto) (0-900) /uL Eos # (Auto) (0-450) /uL Baso # (Auto) (0-100) /uL Sodium (137-145) mmol/L Potassium (3.4-5.1) mmol/L Chloride (98-107) mmol/L Carbon Dioxide (22-32) mmol/L BUN (7-17) mg/dL Creatinine (0.52-1.04) mg/dL Estimated GFR (>60) mL/min BUN/Creatinine Ratio (6-22) Glucose (70-100) mg/dL Calcium (8.4-10.2) mg/dL Total Bilirubin (0.2-1.3) mg/dL AST (14-36) IU/L ALT (9-52) IU/L Alkaline Phosphatase (38-126) U/L Total Protein (6.3-8.2) g/dL Albumin (3.5-5.0) g/dL Globulin (1.7-4.1) g/dL Albumin/Globulin Ratio (1.0-2.8) HCG, Quant mIU/mL Urine RBC None seen (0-5/HPF) Urine WBC 1-5/hpf (0-5/HPF) Ur Squamous Epith Cells 0-1 /hpf (0-5/HPF) Urine Bacteria None seen (None) Hyaline Casts 0-1/lpf (None) Ur Culture Indicated? Specimen cultured Ur Chlamydia DNA (PCR) N gonorrhoeae DNA (PCR) Point of care testing: Point of Care Testing Test Results Positive Urine Dip Bedside Urine Glucose Negative Bedside Urine Bilirubin - Negative Bedside Urine Ketone - Negative Urine Specific [place] 1.020 Bedside Urine Occult Blood - Negative Bedside Urine pH 6.5 Bedside Urine Protein - Negative Bedside Urine Urobilinogen - Negative Bedside Urine Leukocytes ++ 125 Esterase Imaging Data ultrasound: Radiologist's impression: Lien Felipe 18 F [address] [place] [address] Ultrasound Report Signed Patient: Lien Felipe#: [id number] : 2000Acct:[id number] Age/Sex: 18 / FDate of Service: 04/27/19 Loc: ED Accession Number: [id number] Procedure: US OB <= 14 weeks fetus Ordering Provider: Lakeshia Damian-BC PROCEDURE: US OB <= 14 WEEKS FETUS INDICATIONS: PAIN OUTSIDE/PRIOR DATING DATA: Last menstrual period (LMP): 02/01/2019. LMP-based estimated date of delivery (TIMOTEO): 11/08/19. First dating scan (date and location): 04/16/2019 at [facility]. Estimated date of delivery (TIMOTEO) from first dating scan: 11/02/2019. TECHNIQUE: Real-time scanning was performed of the fetus and maternal pelvic organs, with image documentation. COMPARISON: [facility], , OB <= 14 WEEKS FETUS, 04/16/2019, 20:26. FINDINGS: Embryo: Single living intrauterine gestation identified with an estimated sonographic gestational age of approximately 13 weeks and 0 days. heart rate measured 160 beats per minute. Measurement variability in dating: +/- 4 weeks by LMP, +/- 7 days by mean sac diameter (use before 6 weeks gestation if crown-rump length not able to be measured), +/- 5 days by crown-rump length (up to 8 weeks 6 days gestation), +/- 7 days by crown-rump length (up to 13 weeks 6 days gestation). Maternal organs: Ovaries are not well seen. Limited images through the kidneys demonstrate no hydronephrosis. IMPRESSION: 1. Single living intrauterine gestation with an estimated sonographic gestational age of approximately 13 weeks and 0 days. Recommend routine second trimester anatomic screening survey. 2. No sonographic abnormalities identified. Dictated by: Krishan Maldonado M.D. on 04/27/2019 at 19:32 Approved by: Krishan Maldonado M.D. on 04/27/2019 at 19:36 MDM Narrative Medical decision making narrative: The patient is a 18-year-old female who presents with a chief complaint of vaginal discharge and lower abdominal pain. She is . She does not have an elevated white blood cell count. She has no acute findings on her urine. She has a normal ultrasound. Her urine gonorrhea and Chlamydia came back negative. She is hemodynamically stable, afebrile. Given her exam, we have elected to treat her for yeast infection. I discussed at length that she needs to follow up with her primary care Ob, which she has not done since her previous visit to this emergency department. I discussed at length the importance of follow-up care, coming back to emergency department for any acute concerns such as shortness of breath or severe vaginal bleeding. No questions or concerns upon discharge. <Nitin Marte, - Last Filed: 04/27/19 21:36> Lab Data Lab Results 04/27/19 04/27/19 04/27/19 Range/Units 18:45 18:45 18:45 WBC 6.2 (4.5-11.0) X10^3/uL RBC 4.42 (4.0-5.2) X10^6/uL Hgb 12.6 (12.0-16.0) g/dL Hct 37.1 (36-46) % MCV 83.9 (80-100) fL MCH 28.6 (26-34) PG MCHC 34.1 (30-36) % RDW 13.6 (11.6-14.8) % Plt Count 266 (150-400) X10^3/uL Neut % (Auto) 49.9 L (50-75) % Lymph % (Auto) 36.7 (25-40) % [place] % (Auto) 12.1 (3-14) % Eos % (Auto) 0.8 L (2-4) % Baso % (Auto) 0.5 (0-2) % Neut # (Auto) 3100 (9728-3532) /uL Lymph # (Auto) 2300 (8120-1621) /uL [place] # (Auto) 800 (0-900) /uL Eos # (Auto) 0 (0-450) /uL Baso # (Auto) 0 (0-100) /uL Sodium 135 L (137-145) mmol/L Potassium 4.3 (3.4-5.1) mmol/L Chloride 102 (98-107) mmol/L Carbon Dioxide 25 (22-32) mmol/L BUN 6 L (7-17) mg/dL Creatinine 0.40 L (0.52-1.04) mg/dL Estimated GFR > 60.0 (>60) mL/min BUN/Creatinine Ratio 15.0 (6-22) Glucose 98 (70-100) mg/dL Calcium 9.9 (8.4-10.2) mg/dL Total Bilirubin 0.5 (0.2-1.3) mg/dL AST 27 (14-36) IU/L ALT 8 L (9-52) IU/L Alkaline Phosphatase 48 (38-126) U/L Total Protein 7.8 (6.3-8.2) g/dL Albumin 4.4 (3.5-5.0) g/dL Globulin 3.4 (1.7-4.1) g/dL Albumin/Globulin Ratio 1.3 (1.0-2.8) HCG, Quant 759446 mIU/mL Urine RBC (0-5/HPF) Urine WBC (0-5/HPF) Ur Squamous Epith Cells (0-5/HPF) Urine Bacteria (None) Hyaline Casts (None) Ur Culture Indicated? Ur Chlamydia DNA (PCR) Not detected N gonorrhoeae DNA (PCR) Not detected 04/27/19 Range/Units 18:45 WBC (4.5-11.0) X10^3/uL RBC (4.0-5.2) X10^6/uL Hgb (12.0-16.0) g/dL Hct (36-46) % MCV (80-100) fL MCH (26-34) PG MCHC (30-36) % RDW (11.6-14.8) % Plt Count (150-400) X10^3/uL Neut % (Auto) (50-75) % Lymph % (Auto) (25-40) % [place] % (Auto) (3-14) % Eos % (Auto) (2-4) % Baso % (Auto) (0-2) % Neut # (Auto) (8072-2281) /uL Lymph # (Auto) (0255-5346) /uL [place] # (Auto) (0-900) /uL Eos # (Auto) (0-450) /uL Baso # (Auto) (0-100) /uL Sodium (137-145) mmol/L Potassium (3.4-5.1) mmol/L Chloride (98-107) mmol/L Carbon Dioxide (22-32) mmol/L BUN (7-17) mg/dL Creatinine (0.52-1.04) mg/dL Estimated GFR (>60) mL/min BUN/Creatinine Ratio (6-22) Glucose (70-100) mg/dL Calcium (8.4-10.2) mg/dL Total Bilirubin (0.2-1.3) mg/dL AST (14-36) IU/L ALT (9-52) IU/L Alkaline Phosphatase (38-126) U/L Total Protein (6.3-8.2) g/dL Albumin (3.5-5.0) g/dL Globulin (1.7-4.1) g/dL Albumin/Globulin Ratio (1.0-2.8) HCG, Quant mIU/mL Urine RBC None seen (0-5/HPF) Urine WBC 1-5/hpf (0-5/HPF) Ur Squamous Epith Cells 0-1 /hpf (0-5/HPF) Urine Bacteria None seen (None) Hyaline Casts 0-1/lpf (None) Ur Culture Indicated? Specimen cultured Ur Chlamydia DNA (PCR) N gonorrhoeae DNA (PCR) Point of care testing: Point of Care Testing Test Results Positive Urine Dip Bedside Urine Glucose Negative Bedside Urine Bilirubin - Negative Bedside Urine Ketone - Negative Urine Specific [place] 1.020 Bedside Urine Occult Blood - Negative Bedside Urine pH 6.5 Bedside Urine Protein - Negative Bedside Urine Urobilinogen - Negative Bedside Urine Leukocytes ++ 125 Esterase Discharge Plan Departure Patient Disposition: Home Clinical Impression: Candidiasis Instructions: Vaginal Yeast Infection, DI for Vaginal Yeast Infection Activity Restrictions/Additional Instructions: Your ultrasound and came back normal today. Your urine does not have any bacteria in it. However we are sending it for culture to see if anything grows. You will get a phone call in 2-3 days if needed regarding your culture results. We have elected to treat you for a yeast infection. I have given you a prescription for this treatment. Please rest and push fluids. Please follow up with primary care OBGYN as soon as possible. Please come back to the emergency department for any acute concerns such as severe vaginal bleeding or shortness of breath. Prescriptions: New miconazole nitrate [Miconazole 7] 2 % cream 1 applicator VAG BEDTIME 7 Days Qty: 1 RF: 0 No Action nitrofurantoin monohyd/m-cryst [Macrobid] 100 mg capsule 100 mg PO BID Qty: 14 RF: 0 Referrals: [employer] [facility] [Provider Group] <Nitin Marte DO - Last Filed: 04/27/19 21:36> Cosign ED Attending Rehan Attestation: I was available for consultation during this patient's emergency department encounter
[2019-04-27 20:41] LABS: Bacteria Urine None Seen; RBC Urine None Seen (0-5/HPF); Squamous Epithelial Cell Urine 0-1 /HPF (0-5/HPF); WBC Urine 1-5/HPF (0-5/HPF)
[2019-04-27 20:42] LABS: Culture Indicated Urine Specimen Cultured; Hyaline Casts Urine 0-1/LPF
[2019-04-27 21:27] VITALS: BP 92/64; PULSE 85; RESP 17; O2SAT 98
== END 2019-04-27 21:38 | disposition home or self-care (01) ==
PROVIDERS: Emergency Provider Nurse Practitioner Family
DX: B37.9 Candidiasis, unspecified (principal); Z33.1 Pregnant state, incidental
CPT/HCPCS: 36591; 76801; 80053; 81003; 81015; 81025; 84702; 85025; 87070; 87077; 87086; 87205; 87210; 87491; 87591; 96360; 99283; 99284

== ENCOUNTER → 2019-07-23 10:01 | Outpatient (CLI) | payer OTHER, SELFPAY ==
[2019-07-23 12:23] LABS: GTT (PREG) 1 Hour PP 50gm Dose 102 mg/dL (76-139)
[2019-07-23 12:27] LABS: Hematocrit 30.2 % (36-46); Hemoglobin 10.3 g/dL (12.0-16.0)
== END ==
PROVIDERS: Visit Provider Specialist
DX: Z34.82 Encounter for supervision of other normal pregnancy, second trimester (principal)
CPT/HCPCS: 36415; 82950; 85014; 85018

== ENCOUNTER → 2019-07-25 15:18 | Outpatient (CLI) | payer OTHER, SELFPAY ==
[2019-07-25 20:36] LABS: Urine N gonorrhoeae NOT DETECTED
[2019-07-25 20:54] LABS: Urine Chlamydia NOT DETECTED
== END ==
PROVIDERS: Visit Provider Specialist
DX: Z34.02 Encounter for supervision of normal first pregnancy, second trimester (principal); Z3A.25 25 weeks gestation of pregnancy
CPT/HCPCS: 87491; 87591

== ENCOUNTER → 2019-08-22 09:41 | Outpatient (CLI) | payer OTHER, SELFPAY ==
[2019-08-22 12:23] LABS: Urine Chlamydia NOT DETECTED; Urine N gonorrhoeae NOT DETECTED
== END ==
PROVIDERS: Visit Provider Specialist
DX: Z34.03 Encounter for supervision of normal first pregnancy, third trimester (principal)
CPT/HCPCS: 87491; 87591

== ENCOUNTER 2020-03-05 15:45 | Emergency (ER) | payer OTHER, SELFPAY ==
[2020-03-05 15:51] VITALS: BP 138/73; PULSE 86; RESP 14; TEMP 36.4; O2SAT 98; BMI 26.1
--- NOTE | 2020-03-05 15:53 | ED_ITS ---
HPI - General Chief complaint: Recheck/Abnormal Lab/Rx Stated complaint: wants to know if she is Time Seen by Provider: 03/05/20 15:52 Source: patient Mode of arrival: Ambulatory Limitations: no limitations History of Present Illness HPI Narrative: This is a 19-year-old female comes to the emergency department requesting a test because she has had 3 tests at home which have all had very faint positives. She has checked them over the past 3 days. Her last menstrual period was February 10, 2020. If she was she would be 3 weeks and 3 days by dates. She has not had any other issues no vaginal bleeding or discharge. She wants to know if she is so she can call to make a follow-up appointment with her OBGYN. Patient states she had some cramping but has had no other symptoms, no vaginal bleeding and no persistent abdominal pain. No other symptoms. She does have a 4-month-old at home. Related Data Home Medications Medication Instructions Recorded Confirmed prenat.vits,keya,[id number] 1 tab PO DAILY 07/23/19 07/23/19 Previous Rx's Medication Instructions Recorded ferrous gluconate 324 mg (37.5 mg 324 mg PO DAILY #60 tab 07/25/19 iron) tablet Allergies Allergy/AdvReac Type Severity Reaction Status Date / Time acetaminophen [From [place]] AdvReac Unknown Unknown, Verified 03/05/20 15:57 happened w/wisdom tooth extraction hydrocodone [From [place]] AdvReac Unknown Unknown, Verified 03/05/20 15:57 happened w/wisdom tooth extraction Review of Systems Review of Systems ROS Unobtainable: All systems reviewed & are unremarkable except as noted in HPI and below PMFSH - Past Medical History Medical history: Reports no medical history Exam Narrative Exam Narrative: GENERAL: Alert and oriented x three, well-nourished, well- appearing female in no acute distress. HEENT: Head normocephalic, atraumatic, EOMI, pupils reactive, face symmetric, moist mucous membranes NECK: Supple, full range of motion CARDIOVASCULAR: Regular rate and rhythm without murmurs, rubs or gallops. RESPIRATORY: Breath sounds equal bilaterally, no wheezes rales or rhonchi. ABDOMEN: Soft, nontender. Normoactive bowel sounds all 4 quadrants. No guarding or rebound, rigidity, no mass EXTREMITIES: Normal range of motion, no clubbing or edema. Neurovascularly intact NEUROLOGICAL: Cranial nerves II through XII grossly intact. Moving all extremities SKIN: Warm, dry, no petechiae, no rashes or lesions. Initial Vital Signs Initial Vital Signs: Vital Signs Temperature 97.6 F 03/05/20 15:51 Pulse Rate 86 03/05/20 15:51 Respiratory Rate 14 03/05/20 15:51 Blood Pressure 138/73 03/05/20 15:51 Pulse Oximetry 98 03/05/20 15:51 Course Orders Ordered: ED Orders 03/05/20 16:41 Test Serum,Qual Stat Vital Signs Vital signs: Vital Signs - 8 hr 03/05/20 15:51 Temperature 97.6 F Pulse Rate 86 Respiratory Rate 14 Blood Pressure 138/73 Pulse Oximetry 98 MDM - OB/Uterine Contractions Lab Data Labs: Lab Results 03/05/20 Range/Units 16:41 Serum , Qual Negative (Negative) Point of Care Testing Test Results Negative MDM Narrative Medical decision making narrative: Discussed with patient her does here is negative. The test she brought in today difficult to tell they were negative were positive. There are several days old. We discussed that patient is still a week prior to her expected. So urine dip test are not necessarily accurate at this point. We discussed that a blood test may not be accurate if it is negative it does not completely rule out although if positive would rule in . Patient would like to go ahead and do a serum . Qualitative is negative. Patient is early so discussed cannot 100% rule out. Discharge Plan Departure Patient Disposition: Home Clinical Impression: Encounter for test with result negative Activity Restrictions/Additional Instructions: Your test today for was negative. Continue your vitamins. This does not completely rule out because you are not due for your menses for another week. I would recommend rechecking a test if you do not have a period two week after your expected menses. Prescriptions: No Action ferrous gluconate 324 mg (37.5 mg iron) tablet 324 mg PO DAILY Qty: 60 RF: 0 prenat.vits,keya,beb-ctio-mlsvl tablet 1 tab PO DAILY RF: 0
[2020-03-05 17:15] LABS: Pregnancy Test Serum,Qual Negative (Negative)
[2020-03-05 17:50] VITALS: BP 119/74; PULSE 69; O2SAT 100
== END 2020-03-05 17:53 | disposition home or self-care (01) ==
PROVIDERS: Emergency Provider Emergency Medicine
DX: N91.2 Amenorrhea, unspecified (principal); Z32.02 Encounter for pregnancy test, result negative
CPT/HCPCS: 36415; 81025; 84703; 99281; 99282